=== PATIENT | male | born 1980 | race Caucasian/White ===

== ENCOUNTER 2023-05-24 12:51 | Emergency (ER) | payer OTHER ==
[~2023-05-24] VITALS: Ht 175.3 cm; Wt 86.6 kg
[2023-05-24 12:52] VITALS: BP_SYST 153; PULSE 71; RESP 18; TEMP 97.1; O2SAT 18
== END 2023-05-24 14:17 | disposition home or self-care (01) ==
LOC: SED 12:51
DX: K11.5 Sialolithiasis (principal); R22.0 Localized swelling, mass and lump, head; I10 Essential (primary) hypertension; Z79.899 Other long term (current) drug therapy
CPT/HCPCS: 99281